=== PATIENT | male | born 1935 | race Caucasian/White ===

== ENCOUNTER 2021-12-06 13:26 | Emergency (ER) | payer BC, SELFPAY ==
[~2021-12-06] VITALS: Ht 170.2 cm; Wt 64.1 kg
[2021-12-06 13:27] VITALS: BP 153/63
[2021-12-06] MEDS ORDERED: METF10004 (13:47)
[2021-12-06] MEDS ORDERED: LEVO112T2 (13:47)
== END 2021-12-06 13:52 | disposition left against medical advice (07) ==
LOC: M ED 13:26
DX: Z53.21 Procedure and treatment not carried out due to patient leaving prior to being seen by health care provider (principal)

== ENCOUNTER → 2021-12-10 | Outpatient (REF) | payer MEDICARE ==
[~2021-12-10] MED LIST: LEVO112T2; METF10004
== END ==
LOC: M LAB REF 13:14
PROVIDERS: ATTEND Internal Medicine Critical Care Medicine
DX: J15.8 Pneumonia due to other specified bacteria (principal)

== ENCOUNTER 2022-07-16 07:43 | Emergency (ER) | payer MEDICARE ==
[~2022-07-16] VITALS: Ht 172.7 cm; Wt 64.4 kg
[2022-07-16] MEDS ORDERED: BOOSTRIX/ADACEL VACCINE (DIPHTH/PERTUSS/ACELL/TETANUS) 0.5ML SYR IM.IMMUN ONE (08:10)
[2022-07-16 11:31] VITALS: BP 150/71
== END 2022-07-16 11:36 | disposition home or self-care (01) ==
LOC: EDBD 07:43 → M ED 07:43
DX: S70.01XA Contusion of right hip, initial encounter (principal); S80.02XA Contusion of left knee, initial encounter; W18.30XA Fall on same level, unspecified, initial encounter; Y92.129 Unspecified place in nursing home as the place of occurrence of the external cause; F03.90 Unspecified dementia, unspecified severity, without behavioral disturbance, psychotic disturbance, mood disturbance, and anxiety; E11.9 Type 2 diabetes mellitus without complications; J44.9 Chronic obstructive pulmonary disease, unspecified; Z79.899 Other long term (current) drug therapy